=== PATIENT | female | born 1950 | race Hispanic/Latino ===

== ENCOUNTER → 2017-11-17 | Outpatient (CLI) | payer MEDICARE | END | disposition home or self-care (01) | LOC: SHCH 08:18 | PROVIDERS: ATTEND Internal Medicine Cardiovascular Disease | DX: I10 Essential (primary) hypertension (principal) | CPT/HCPCS: 93306 ==

== ENCOUNTER 2020-10-19 06:54 | Day surgery (SDC) | payer OTHER, MEDICARE ==
[2020-10-13 12:24] LABS: BASOPHILS % (AUTO) 0.3 % (0.0-5.0); EOSINOPHILS % (AUTO) 0.6 % (0.0-8.0); HEMATOCRIT 40.7 % (36-48); LYMPHOCYTES % (AUTO) 29.7 % (21.0-51.0); MEAN CORPUSCULAR HEMOGLOBIN 28.9 pg (27.0-33.0); MEAN CORPUSCULAR HGB CONC 31.4 g/dL (32.0-36.0); MEAN CORPUSCULAR VOLUME 91.9 fL (79-99); MONOCYTES % (AUTO) 5.6 % (3.0-13.0); NEUTROPHILS % (AUTO) 63.5 % (40.0-77.0); PLATELET COUNT (AUTO) 195 K/uL (130-400); RED BLOOD CELL COUNT(AUTO) 4.43 MIL/uL (4.00-5.50); RED CELL DISTRIBUTION WIDTH 14.4 % (11.0-15.5); WHITE BLOOD COUNT (AUTO) 6.3 K/uL (4.8-10.8)
[2020-10-13 12:29] LABS: APPEARANCE,URINE Clear (CLEAR); BILIRUBIN,URINE Negative (NEGATIVE); COLOR,URINE Yellow (YELLOW); GLUCOSE, URINE (UA) Negative (NEGATIVE); KETONES,URINE Negative (NEGATIVE); LEUKOCYTE ESTERASE ,URINE Small (NEGATIVE); NITRATE,URINE Negative (NEGATIVE); OCCULT BLOOD,URINE Negative (NEGATIVE); PROTEIN,URINE Negative (NEGATIVE); UROBILINOGEN,URINE 0.2 mg/dL (0.2-1.0)
[2020-10-13 12:34] LABS: RBC,URINE 0-1 /HPF (0-1)
[2020-10-13 12:35] LABS: BACTERIA,URINE Rare /HPF (None Seen); MUCUS,URINE Few LPF (None Seen); SQUAMOUS EPITHELIAL CELL,UR Few /HPF (0-2)
[2020-10-13 12:41] LABS: CREATININE 0.7 mg/dL (0.5-1.5); POTASSIUM 4.1 mmol/L (3.5-5.1)
[2020-10-18 12:30] VITALS: BP 155/73
--- NOTE | 2020-10-18 16:19 | NUR ---
LABS ABNORMAL LABS INCLUDING URINALYSIS AND URINE CULTURE REPORTED AND FAXED TO OFFICE OF DR. MEEHAN. MESSAGE LEFT WITH MENDOZA FOR REVIEW. AWAITING FURTHER TELEPHONE ORDERS.
[2020-10-19] VITALS (18 sets, daily range): BP systolic 94–139; BP diastolic 52–80
[~2020-10-19] VITALS: Ht 163.8 cm; Wt 79.1 kg
[~2020-10-19 06:54] MED LIST: BOTULINUM TOXIN TYPE A 100 UNITS/VIAL INJ SCH; CLOP75TA32 PO; LISI10TA7 PO; MACR100 PO; OMEP40CA13 PO; PENT100C9 PO; PREMC VG; ROSU20TA31 PO; TIMO5DRO43 OP
[2020-10-19] MEDS ORDERED: SODIUM CHLORIDE 0.9% 1000ML 1,000 ML IV ONE (08:01)
[2020-10-19] MEDS ORDERED: PROPOFOL 10 MG/ML 20ML VIAL IV ONE ×2 (08:06→09:04)
[2020-10-19] MEDS ORDERED: MIDAZOLAM HCL 1 MG/ML 2ML VIAL ONE ×2 (08:06→08:47)
[2020-10-19] MEDS ORDERED: GLYCOPYRROLATE 1 MG/5 ML SYRINGE ONE (08:06)
[2020-10-19] MEDS ORDERED: DEXAMETHASONE SOD PHOSPHATE 10MG/ML 1ML VIAL ONE (08:06)
[2020-10-19] MEDS ORDERED: SUCCINYLCHOLINE 200MG/10ML SYR ONE ×2 (08:06→08:07)
[2020-10-19] MEDS ORDERED: NEOSTIGMINE 5MG/5ML SYR IV ONE (08:06)
[2020-10-19] MEDS ORDERED: LIDOCAINE PF 2% 5ML ABBOJECT ONE ×2 (08:06→08:07)
[2020-10-19] MEDS ORDERED: ONDANSETRON HCL 4 MG/2 ML VIAL ONE (08:06)
[2020-10-19] MEDS ORDERED: FENTANYL CITRATE PF 50 MCG/1 ML 2ML VIAL ONE (08:07)
[2020-10-19] MEDS ORDERED: ROCURONIUM 10MG/1ML SYR 10 MG/ML ML ONE (08:07)
[2020-10-19] MEDS: LEVOFLOXACIN 500 MG/D5W 100 ML 100 ML IV SCH ×2 (08:10→08:35)
[2020-10-19] MEDS ORDERED: MEPERIDINE-PF 25 MG/ML SYG ONE (09:39)
--- NOTE | 2020-10-19 10:20 | NUR ---
Pt received Pt received from PACU via stretcher accompanied by JAMES Machado. Pt awake and alert. States having discomfort but not painful. No visible bleeding noted. called in to bedside.
[2020-10-19] MEDS ORDERED: HYDROCODONE/ACETAMINOPHEN 7.5/325 MG TAB ONE (10:58)
--- NOTE | 2020-10-19 11:00 | NUR ---
Pain Pt stating having pain to pelvic area at a 10 on a scale from 0-10. Vicodin administered as ordered. Pt tolerated well. remains at bedside.
--- NOTE | 2020-10-19 11:30 | NUR ---
F/U Pt stating feeling much better. Pain at 2 from scale 0-10. Pt awake and alert. remains at side. Pt talkative. Much improved demeanor from previous; appears comfortable and content.
[2020-10-19] MEDS ORDERED: HYDROCODONE/ACETAMINOPHEN 5/325 MG TAB PO PRN (11:45)
--- NOTE | 2020-10-19 11:45 | NUR ---
D/C Pt prepared for discharge. Stating feeling much better. Verbal and written discharge instructions given to pt and ; rx given to . Pt was then assisted to getting dressed and was taken to private vehicle via w/c in no distress.
== END 2020-10-19 11:50 ==
LOC: DAH 06:54
PROVIDERS: ATTEND Urology
DX: N39.41 Urge incontinence (principal); R35.0 Frequency of micturition; I10 Essential (primary) hypertension; E66.9 Obesity, unspecified; Z88.0 Allergy status to penicillin; Z88.2 Allergy status to sulfonamides; Z20.828 Contact with and (suspected) exposure to other viral communicable diseases
CPT/HCPCS: 36415; 52287; 71045; 80048; 81001; 85025; 87088; 93005; A4215 ×2; A4216; A4221; A4222; A4223 ×2; A4358; A4663; A6260; C9803; J0330 ×2; J0585; J1100; J1956; J2001 ×2; J2175; J2250 ×2; J2405; J2704 ×2; J2710; J3010; J3490; J7030; J7120; U0003

== ENCOUNTER 2021-05-24 06:58 | Day surgery (SDC) | payer OTHER, MEDICARE ==
[2021-05-23 10:17] LABS: BASOPHILS % (AUTO) 0.2 % (0.0-5.0); EOSINOPHILS % (AUTO) 0.6 % (0.0-8.0); HEMATOCRIT 40.7 % (36-48); LYMPHOCYTES % (AUTO) 31.5 % (21.0-51.0); MEAN CORPUSCULAR HEMOGLOBIN 29.7 pg (27.0-33.0); MEAN CORPUSCULAR HGB CONC 31.7 g/dL (32.0-36.0); MEAN CORPUSCULAR VOLUME 93.6 fL (79-99); MONOCYTES % (AUTO) 7.6 % (3.0-13.0); NEUTROPHILS % (AUTO) 59.8 % (40.0-77.0); PLATELET COUNT (AUTO) 185 K/uL (130-400); RED BLOOD CELL COUNT(AUTO) 4.35 MIL/uL (4.00-5.50); RED CELL DISTRIBUTION WIDTH 14.7 % (11.0-15.5); WHITE BLOOD COUNT (AUTO) 6.3 K/uL (4.8-10.8)
[2021-05-23 10:17] LABS: APPEARANCE,URINE Cloudy (CLEAR); BILIRUBIN,URINE Negative (NEGATIVE); COLOR,URINE Yellow (YELLOW); GLUCOSE, URINE (UA) Negative (NEGATIVE); KETONES,URINE Negative (NEGATIVE); LEUKOCYTE ESTERASE ,URINE Negative (NEGATIVE); NITRATE,URINE Negative (NEGATIVE); OCCULT BLOOD,URINE Negative (NEGATIVE); PH,URINE 8.5 (5.0-8.0); PROTEIN,URINE Negative (NEGATIVE); UROBILINOGEN,URINE 0.2 mg/dL (0.2-1.0)
[2021-05-23 10:23] LABS: CREATININE 0.7 mg/dL (0.5-1.5); POTASSIUM 4.1 mmol/L (3.5-5.1)
[2021-05-23 11:04] LABS: BACTERIA,URINE Rare /HPF (None Seen); RBC,URINE None Seen /HPF (0-1); SQUAMOUS EPITHELIAL CELL,UR Rare /HPF (0-2); WBC,URINE None Seen /HPF (0-1)
[2021-05-23 16:43] VITALS: BP 148/84
[~2021-05-24] VITALS: Ht 162.6 cm; Wt 79.5 kg
[2021-05-24] VITALS (18 sets, daily range): BP systolic 98–153; BP diastolic 56–85
[2021-05-24] MEDS: LEVOFLOXACIN 500 MG/D5W 100 ML 100 ML IV SCH ×2 (05:00→08:40)
[~2021-05-24 06:58] MED LIST changes: +FOLI-114 PO; +LISI10TA24 PO; -LISI10TA7 PO; -OMEP40CA13 PO; +PANT20TA18 PO; -ROSU20TA31 PO; +SIMV-43 PO; -TIMO5DRO43 OP; +VITAMIN D PO
[2021-05-24] MEDS ORDERED: LACTATED RINGERS 1000ML 1,000 ML IV ONE (07:40)
[2021-05-24] MEDS ORDERED: LIDOCAINE PF 100MG/5ML (2%) SYRINGE 5ML ONE (08:44)
[2021-05-24] MEDS ORDERED: PROPOFOL 10 MG/ML 20ML VIAL IV ONE ×2 (08:45→09:07)
[2021-05-24] MEDS ORDERED: MIDAZOLAM HCL 1 MG/ML 2ML VIAL ONE (08:46)
[2021-05-24] MEDS ORDERED: LIDOCAINE HCL 2% PF 20 ML JEL DISP.SYRIN MM ONE (08:50)
[2021-05-24] MEDS ORDERED: MEPERIDINE-PF 25 MG/ML SYG ONE (09:35)
[2021-05-24] MEDS ORDERED: ATROPINE 1MG SYG IVP ONE (09:57)
== END 2021-05-24 11:10 | disposition home or self-care (01) ==
LOC: DAH 06:58
PROVIDERS: ATTEND Urology
DX: N39.41 Urge incontinence (principal); N30.10 Interstitial cystitis (chronic) without hematuria; R30.0 Dysuria; I10 Essential (primary) hypertension; E11.9 Type 2 diabetes mellitus without complications; K21.9 Gastro-esophageal reflux disease without esophagitis; E78.5 Hyperlipidemia, unspecified; M19.90 Unspecified osteoarthritis, unspecified site; Z79.899 Other long term (current) drug therapy; Z88.0 Allergy status to penicillin; Z98.890 Other specified postprocedural states
CPT/HCPCS: 36415; 52287; 80048; 81001; 85025; 87088; 87635; 93005; A4215 ×2; A4221; A4222; A4223; A4358; A4600; A4663; A4930; A6260; C1769; C9803; J0461; J0585; J2001; J2175; J2250; J2704 ×2; J7120 ×2; J1956

== ENCOUNTER → 2022-07-01 | Outpatient (CLI) | payer OTHER, MEDICARE ==
[~2022-07-01] MED LIST changes: -BOTULINUM TOXIN TYPE A 100 UNITS/VIAL INJ SCH; +GADOTERATE MEGLUMINE 10 MMOL/20 ML VIAL IV ONE
== END | disposition home or self-care (01) ==
LOC: RAH 07:49 → EDSTATUS 08:00
PROVIDERS: ATTEND Internal Medicine
DX: K62.89 Other specified diseases of anus and rectum (principal)
CPT/HCPCS: 72197; A9575

== ENCOUNTER → 2023-06-09 | Outpatient (CLI) | payer OTHER, MEDICARE ==
[~2023-06-09] MED LIST changes: -GADOTERATE MEGLUMINE 10 MMOL/20 ML VIAL IV ONE
[2023-06-09 16:45] LABS: ALBUMIN 3.6 g/dL (3.5-5.0); BILIRUBIN,TOTAL 0.5 mg/dL (0.2-1.0); CREATININE 0.7 mg/dL (0.5-1.5); POTASSIUM 3.8 mmol/L (3.5-5.1); TOTAL PROTEIN, SERUM 7.2 g/dL (6.0-8.3)
== END | disposition home or self-care (01) ==
LOC: LAB 12:59
PROVIDERS: ATTEND Internal Medicine Cardiovascular Disease
DX: I25.10 Atherosclerotic heart disease of native coronary artery without angina pectoris (principal); I10 Essential (primary) hypertension
CPT/HCPCS: 36415; 80053

== ENCOUNTER → 2023-06-19 | Outpatient (CLI) | payer OTHER, MEDICARE ==
[~2023-06-19] MED LIST changes: +IOHEXOL 350 MG/ML 100ML INFUS..BTL IV ONE
== END | disposition home or self-care (01) ==
LOC: RAH 08:23
PROVIDERS: ATTEND Internal Medicine Cardiovascular Disease
DX: Z01.810 Encounter for preprocedural cardiovascular examination (principal); I25.10 Atherosclerotic heart disease of native coronary artery without angina pectoris; R94.39 Abnormal result of other cardiovascular function study
CPT/HCPCS: 75574; Q9967

== ENCOUNTER 2024-09-23 11:04 | Day surgery (SDC) | payer OTHER, MEDICARE ==
--- NOTE | 2024-09-21 11:10 | EKG ---
[facility] Test Date: 2024-09-21 Test Time: 12:01:17 Pat Name: GIOVANNA LIN Department: [facility] Room: [facility] Gender: F [employer] Manager: [id number] : 1950 Requested By: IDALMIS MURGUIA Order Number: [id number] Reading MD: Heike Murguia Measurements Intervals [place] Rate: 61 P: 7 [place]: 104 QRS: 35 QRSD: 97 T: 17 QT: 401 QTc: 405 Interpretive Statements Sinus rhythm Low voltage, precordial leads Compared to ECG 05/23/2021 09:37:02 Low QRS voltage now present Ventricular premature complex(es) no longer present Electronically Signed On 09-23-2024 17:34:33 [employer] by Heike Murguia Please click the below link to view image of tracing.
[2024-09-21 11:13] LABS: BASOPHILS # (AUTO) 0.01 K/uL (0.00-0.20); BASOPHILS % (AUTO) 0.1 % (0.0-5.0); EOSINOPHILS # (AUTO) 0.05 K/uL (0.00-0.70); EOSINOPHILS % (AUTO) 0.7 % (0.0-8.0); HEMATOCRIT 40.6 % (36-48); IMMATURE GRANULOCYTE ABSOLUTE 0.02 K/uL (0-1); LYMPHOCYTES # (AUTO) 1.7 K/uL (1.0-4.8); LYMPHOCYTES % (AUTO) 24.3 % (21.0-51.0); MEAN CORPUSCULAR HEMOGLOBIN 29.9 pg (27.0-33.0); MEAN CORPUSCULAR HGB CONC 31.8 g/dL (32.0-36.0); MEAN CORPUSCULAR VOLUME 94.2 fL (79-99); MONOCYTES # (AUTO) 0.4 K/uL (0.1-1.0); MONOCYTES % (AUTO) 6.3 % (3.0-13.0); NEUTROPHILS # (AUTO) 4.8 K/uL (1.8-7.7); NEUTROPHILS % (AUTO) 68.3 % (40.0-77.0); PLATELET COUNT (AUTO) 178 K/uL (130-400); RED BLOOD CELL COUNT(AUTO) 4.31 MIL/uL (4.00-5.50); RED CELL DISTRIBUTION WIDTH 14.4 % (11.0-15.5)
[2024-09-21 11:22] VITALS: BP 148/74; PULSE 63; RESP 18; TEMP 97.6
[2024-09-21 11:30] LABS: CREATININE 0.7 mg/dL (0.5-1.0)
[2024-09-21 11:34] LABS: INR 1.02 (0.85-1.15)
[2024-09-21 11:36] LABS: PARTIAL THROMBOPLASTIN TIME 24.9 SEC (26.3-35.5)
[2024-09-21 11:46] LABS: B-TYPE NATRIURETIC PEPTIDE 8 pg/mL (0-100)
--- NOTE | 2024-09-21 12:30 | HMCIMG ---
CHEST 1VW HISTORY: Preop COMPARISON: 10/13/2020 FINDINGS: A frontal projection of the chest was obtained. No acute pulmonary infiltrates is seen. The heart is normal in size. Prominent interstitial markings are seen. Degenerative changes are seen. No evidence of aortic calcification is seen. IMPRESSION: 1. No acute pulmonary infiltrate is seen.
[~2024-09-23 11:04] MED LIST changes: +AMIT25TA9 PO; +ASPI-1197 PO; +CHOL2000 PO; +EZET10TA48 PO; -FOLI-114 PO; +GABA-529 PO; -IOHEXOL 350 MG/ML 100ML INFUS..BTL IV ONE; +LATA2.5D14 OP; -MACR100 PO; -PENT100C9 PO; -PREMC VG; +TIMO5SOL10 OP; -VITAMIN D PO
[2024-09-23 11:35] VITALS: BP 158/76; PULSE 71; RESP 15; TEMP 97.3
[2024-09-23] MEDS: 0.9%NACL 1000ML 1,000 ML IV ONE (11:48)
[2024-09-23] MEDS ORDERED: VERAPAMIL HCL 2.5 MG/ML VIAL ONE (16:36)
[2024-09-23] MEDS ORDERED: IOHEXOL 350 MG/ML 100ML INFUS..BTL IV ONE (16:36)
[2024-09-23] MEDS ORDERED: LIDOCAINE HCL 400MG/20ML VIAL ONE (16:36)
[2024-09-23] MEDS ORDERED: NITROGLYCERIN 50MG VIAL ONE (16:37)
[2024-09-23] MEDS ORDERED: HEParin 10,000 UNIT/10ML (1,000 UNIT/ML) VIAL ONE (16:37)
[2024-09-23] MEDS ORDERED: HEParin-NS 1,000 UNIT/500 ML 500 ML IV ONE ×2 (16:37→16:41)
[2024-09-23] MEDS ORDERED: MIDAZOLAM HCL 1 MG/ML 2ML VIAL ONE (16:52)
[2024-09-23] MEDS ORDERED: FENTanyl CITRate PF 50 MCG/1 ML 2ML VIAL ONE (16:52)
[2024-09-23 17:52] VITALS: BP 134/75; PULSE 61; RESP 14; TEMP 97.5
[2024-09-23] MEDS ORDERED: GLUCAGON 1MG KIT 1 MG ML IM PRN (18:00)
[2024-09-23] MEDS ORDERED: 0.9%NACL 1000ML 1,000 ML IV SCH (18:00)
[2024-09-23] MEDS ORDERED: DEXTROSE 50%-WATER 50 ML DISP.SYRIN IV PRN (18:00)
[2024-09-23 18:05] VITALS: BP 134/79; PULSE 55; RESP 14
[2024-09-23 18:20] VITALS: BP 146/71; PULSE 61; RESP 15
[2024-09-23 18:35] VITALS: BP 131/71; PULSE 55; RESP 16; TEMP 97.6
[2024-09-23 18:50] VITALS: BP 147/65; PULSE 58; RESP 15
--- NOTE | 2024-09-23 19:30 | NUR ---
TR BAND REMOVED SITE ASYMPTOMATIC
--- NOTE | 2024-09-28 10:54 | PRN ---
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 A 6 Iranian arterial sheath was inserted in the right radial artery using ultrasound guidance with first pass wall puncture. The arterial sheath was aspirated and flushed. A 6 Iranian JL 3.5 was then advanced to the ascending aorta over an exchange length J-tip guidewire, was aspirated and flushed, and was used for selective coronary angiograms in multiple obliquities. A JR-4 was advanced in a similar fashion to the ascending aorta over the J-tipped guidewire and was used for selective right coronary angiograms in multiple oblique views with findings as outlined below. The JR-4 catheter advanced into the LV and pressures were obtained with a pull-back across the aortic valve. A TR band was placed over right radial artery. FLUOROSCOPY TIME: 9.5 min LEFT HEART HEMODYNAMICS: LVEDP 15 mm Hg and no gradient Ao CORONARY ANGIOGRAM: LEFT MAIN: Patent, long with 0% stenosis. Gives rise to LCx and LAD. LEFT ANTERIOR DESCENDING: Large vessel giving rise to two Diagonal branches. Highly tortuous and There is 30% mid LAD stenosis just after the first septal artery with VIKTORIYA 3 flow. LEFT CIRCUMFLEX: Smal and gives rise to one OM branches. 30% prox stenosis. Tortuous RIGHT CORONARY ARTERY: Large, dominant vessel giving rise to PDA and PL branches. 0% stenosis. HEMOSTASIS: TR band 12 autumn over right radial artery INTERVENTIONS: None. COMPLICATIONS: None FINDINGS: Normal coronary anatomy and mild non-obstructive CAD. ESTIMATED BLOOD LOSS: 5 cc RECOMMENDATIONS/INSTRUCTIONS: Aggressive risk factor modification. Aggressive blood pressure control given her systolic blood pressures greater than 160 during the procedure and she had highly tortuous vessels CONTRAST DELIVERED TO PATIENT (mL): 60cc IDALMIS Sinha MD, MD Sep 28, 2024 10:54
== END 2024-09-23 19:52 | disposition home or self-care (01) ==
LOC: DAH 11:04
PROVIDERS: ATTEND Student in an Organized Health Care Education/Training Program
DX: R93.1 Abnormal findings on diagnostic imaging of heart and coronary circulation (principal); I25.10 Atherosclerotic heart disease of native coronary artery without angina pectoris; I77.1 Stricture of artery; E78.5 Hyperlipidemia, unspecified; I11.9 Hypertensive heart disease without heart failure; Z88.0 Allergy status to penicillin; Z88.2 Allergy status to sulfonamides; Z79.82 Long term (current) use of aspirin; Z79.01 Long term (current) use of anticoagulants; Z98.890 Other specified postprocedural states; Z79.899 Other long term (current) drug therapy
CPT/HCPCS: 80048; 83880; 85025; 85610; 85730; 36415; 71045; 93005; 93458; C1769; C1894; A4649; J3010; J3490 ×3; J7030; J1644 ×3; J2250; Q9967; A4215; A4222; A4221; A4663; A4216; A4606; Q9965; A4223 ×3; 96360; 96361; 99156; 99157